=== PATIENT | male | born 1990 | race Caucasian/White ===

== ENCOUNTER 2021-07-06 23:22 | Emergency (ER) | payer SELFPAY ==
[~2021-07-06] VITALS: Ht 167.6 cm; Wt 89.8 kg
[2021-07-06 23:22] VITALS: BP_SYST 151
--- NOTE | 2021-07-06 23:22 | NUR ---
Placed in room 8 . Placed on radiation monitor, blood pressure machine and pulse oximeter. To gown for exam. Side rails up. Report given to José SIMONS.
--- NOTE | 2021-07-06 23:28 | NUR ---
Pt came into ER with complaint of intermittent dull substernal chest pain non radiating 5/10 X4days. Pt reports SOB X4days "Feels like the air is knocked out". Pt AAOX4 speaking full sentences resting in gurney VSS no distress noted at this time. Breathing is even and unlabored. Lungs CTA bilaterally. Attached to monitor.
--- NOTE | 2021-07-06 23:39 | NUR ---
ER at bedside examining patient.
--- NOTE | 2021-07-06 23:50 | NUR ---
x-ray at bedside.
[2021-07-07] MEDS ORDERED: KETOROLAC TROMETHAMINE 30 MG VIAL IVP ONE
--- NOTE | 2021-07-07 | NUR ---
# 18 gauge angiocath placed to LC. Use of asceptic technique. Opsite placed over site. Blood return noted. Blood for lab drawn from site. Flushed with 10 cc of normal saline. No evidence of infiltration noted. Patient tolerated well.
[2021-07-07 00:27] LABS: BASOPHILS % (AUTO) 0.7 % (0.0-2.0); EOSINOPHILS # (AUTO) 0.1 K/uL (0.0-0.4); HEMOGLOBIN 14.2 g/dL (14.0-18.0); LYMPHOCYTES # (AUTO) 2.2 K/uL (1.0-5.5); LYMPHOCYTES % (AUTO) 37.2 % (20.5-51.5); MEAN CORPUSCULAR HEMOGLOBIN 31 pg (27-31); MEAN CORPUSCULAR HGB CONC 34 % (32-36); MEAN CORPUSCULAR VOLUME 91 fL (79.0-98.0); MONOCYTES # (AUTO) 0.5 K/uL (0.0-1.0); NEUTROPHILS # (AUTO) 3.2 K/uL (1.8-7.7); NEUTROPHILS % (AUTO) 53.1 % (40.0-70.0); PLATELET COUNT (AUTO) 200 K/uL (130-430); RED BLOOD CELL COUNT(AUTO) 4.63 MIL/uL (4.2-6.2); RED CELL DISTRIBUTION WIDTH 13.2 % (9.0-15.0)
[2021-07-07 00:33] LABS: ANION GAP 5 (5-15); CHLORIDE 103 mmol/L (98-107); CREATININE 0.93 mg/dL (0.55-1.30); GLUCOSE 98 mg/dL (70-99); POTASSIUM 3.7 mmol/L (3.5-5.1); SODIUM SERUM 139 mmol/L (136-145); UREA NITROGEN, BLOOD 12 mg/dL (8-21)
[2021-07-07 00:39] LABS: GFR AFRICAN AMERICAN 121 mL/min (>90)
--- NOTE | 2021-07-07 00:42 | NUR ---
Pt states he feels better. Resting in gurney VSS no distress noted at this time. Breathing is even and unlabored.
[2021-07-07 00:49] LABS: ALANINE AMINOTRANSFERASE 40 U/L (12-78); ALBUMIN 3.8 g/dL (3.4-4.8); TOTAL BILIRUBIN 0.6 mg/dL (0.0-1.0)
[2021-07-07 01:11] LABS: ASPARTATE AMINOTRANSFERASE 24 U/L (10-37)
[2021-07-07 01:13] LABS: ERYTHROCYTE SEDIMENTATION RATE 3 MM/HR (0-15)
--- NOTE | 2021-07-07 01:20 | NUR ---
Dr. Bauman at bedside speaking with pt.
[2021-07-07] MEDS ORDERED: NAPR-686 PO (01:26)
--- NOTE | 2021-07-07 01:32 | NUR ---
Patient given written and verbal discharge instructions and verbalizes understanding. ER MD discussed with patient the results and treatment provided. Patient in stable condition. ID arm band removed. IV catheter removed intact and dressing applied, no active bleeding. Rx of naproxen given. Patient educated on pain management and to follow up with PMD. Pain Scale 0/10. Opportunity for questions provided and answered. Medication side effect fact sheet provided.
[2021-07-07 01:33] VITALS: BP_SYST 111
== END 2021-07-07 01:32 | disposition home or self-care (01) ==
LOC: SED 23:22
DX: R07.2 Precordial pain (principal); Z79.899 Other long term (current) drug therapy
CPT/HCPCS: 36415; 71045; 80053; 84484; 85025; 85651; 93005; 96374; 99285; J1885